=== PATIENT | female | born 1945 | race Caucasian/White ===

== ENCOUNTER 2022-06-06 20:01 | Emergency (ER) | payer MEDICARE, OTHER ==
[~2022-06-06 20:01] MED LIST: ADVAIR 250/28 DISKU1 IH; AROMASIN25 MG PO; ASPIR-TRIN325 MG PO; ASPIRIN E.C. 8181 MG PO; ASPIRIN E.C.325 MG PO; CALCIUM + D 6001 TA1 PO; CALCIUM CITRAT200 MG PO; CALCIUM CITRATE1 TA2 PO; CARDI-OMEGA1000 MG PO; CEPHALEXIN500 M1 PO; CINNAMON CHROMIUM PO; CINNAMON/CHROMIUM; CINNAMON500 MG PO; COREG CR20 M1 PO; COREG CR20 MG PO; COUMADIN 5MG5 MG/TAB PO; COUMADIN 77.5 MG/TAB PO; COUMADIN3 MG PO; COUMADIN6 MG PO; CRESTOR40 MG PO; CRESTOR5 MG PO; ESTROVEN; FORTAMET1000 MG PO; FOSAMAX PLUS D1 TAB PO; FOSAMAX70 MG PO; GLUCOTROL 5M5 MG/TAB PO; GLUTAMINE PO; LISINOPRIL10 MG PO; LOVAZA1 GM PO; LOVENOX30 MG/0.1 SC; MAG-OX 400400 MG PO; MAG-OX 400400 MG/TAB PO; MEGACE20 MG PO; METFORMIN1000 MG PO; NITROSTAT0.4 MG/TAB SL; OMEGA 31000 MG PO; PREMARIN VAG42.5 GM VG; PRILOSEC 20MG20 MG PO; PRILOSEC40 MG PO; PRINIVIL20 MG PO; RITE AID IRON PO; SEPTRA DS 8001 TAB PO; TRICOR 48MG48 MG PO; TRICOR145 MG PO; TRIGLIDE160 MG PO; ULTRAM 50MG TAB50 MG PO; VITAMIN B121000 MC2 SL; VITAMIN B6100 MG PO; VITAMIN C500 MG PO; VITAMIN D; VITAMIN D31000 IU PO; VITAMIN D32000 IU PO; XOPENEX HF0.045 MG/A IH; ZETIA 10MG TAB10 MG PO; ZETIA10 MG PO; [UNRECOGNIZED DRUG - OTHER]
[2022-06-06 22:33] VITALS: BP 129/71; PULSE 86; TEMP 98.4
== END 2022-06-06 23:02 | disposition home or self-care (01) ==
LOC: COL.ER 20:01
DX: U07.1 COVID-19 (principal); R42 Dizziness and giddiness; Z87.891 Personal history of nicotine dependence

== ENCOUNTER 2022-06-09 17:14 | Emergency (ER) | payer MEDICARE, OTHER ==
[~2022-06-09] VITALS: Ht 162.6 cm; Wt 77.3 kg
[2022-06-09 17:23] VITALS: TEMP 98.7
[2022-06-09 17:50] LABS: BASO % 0.3 % (0.0-2.0); EOS # 0.1 K/mm3 (0.0-0.7); EOS % 1.8 % (0.0-4.0); GRAN # 1.5 K/mm3 (1.4-6.5); GRAN % 45.8 % (42.2-75.2); HEMOGLOBIN 12.1 g/dl (12.5-16.0); LYMPH # 1.5 K/mm3 (1.2-3.4); LYMPH % 43.2 % (20.0-51.0); MEAN CELL VOLUME 92 fl (80.0-100.0); MEAN CORPUSCULAR HEMOGLOBIN 31 pg (27-31); MEAN CORPUSCULAR HGB CONC 33 g/dl (33.0-37.0); MEAN PLATELET VOLUME 9.1 fl (7.4-10.4); MONO # 0.3 K/mm3 (0.1-0.6); MONO % 8.9 % (1.7-9.3); PLATELET COUNT 195 K/mm3 (130-400); RED BLOOD COUNT 3.95 M/mm3 (4.10-5.30); REDCELL DISTRIBUTION WIDTH-CV 12.9 % (11.5-14.5)
[2022-06-09 17:53] LABS: HEMATOCRIT 36.2 % (37.0-47.0)
[2022-06-09 18:06] LABS: ALANINE AMINOTRANSFERASE 19 U/L (0-55); ALBUMIN 3.4 gm/dL (3.4-4.8); ALKALINE PHOSPHATASE 35 U/L (40-150); ANION GAP 12 mmol/L (7-16); AST,SGOT 27 U/L (5-34); BILIRUBIN,TOTAL 0.3 mg/dL (0.2-1.2); BLOOD UREA NITROGEN 19 mg/dL (10-20); CALCIUM 10.4 mg/dL (8.4-10.2); CARBON DIOXIDE 23 mmol/L (23-31); CHLORIDE 101 mmol/L (98-107); CREATININE, serum 0.96 mg/dL (0.57-1.11); GLUCOSE 137 mg/dL (70-99); POTASSIUM 3.9 mmol/L (3.5-4.5); SODIUM 136 mmol/L (136-145)
[2022-06-09 18:12] LABS: TROPONIN-I < 0.010 ng/mL (0.00-0.033)
[2022-06-09] MEDS ORDERED: PAXLOVID CO-PA1 EACH PO ×2 (18:17)
[2022-06-09 19:19] VITALS: BP 135/70; PULSE 86
== END 2022-06-09 19:19 | disposition home or self-care (01) ==
LOC: COL.ER 17:14
PROVIDERS: Nurse Practitioner Primary Care
DX: U07.1 COVID-19 (principal); Z87.891 Personal history of nicotine dependence; Z88.6 Allergy status to analgesic agent; Z28.310 Unvaccinated for COVID-19
CPT/HCPCS: J7030

== ENCOUNTER → 2023-12-22 | Outpatient (CLI) | payer MEDICARE, OTHER ==
[~2023-12-22] VITALS: Ht 162.6 cm; Wt 73.0 kg
[2023-12-22] VITALS (11 sets, daily range): BP systolic 56–139; BP diastolic 26–82; PULSE 61–92; TEMP 97.6
[~2023-12-22] MED LIST changes: +ATARAX 25MG25 MG/TAB PO; +ATIVAN 0.50.5 MG/TAB PO; +B-121000 MCG PO; +COREG 6.256.25 MG/TA PO; +CVS SPECTRAVIT1 EA15 PO; +ELIQUIS 5MG PO; +FISH OIL1000 MG PO; +FOLIC ACID0.4 MG PO; +GLUMETZA1000 MG PO; +JANUVIA 100MG100 MG PO; +MASON NATURAL500 MG PO; +OSCAL 500 TAB500 MG PO; +PAXLOVID CO-PA1 EACH PO; +SEROQUEL 2525 MG/TAB PO; +VITAMIN D3400 I1 PO; +ZESTRIL 20MG TA20 MG PO; +ZOLOFT 25MG25 MG PO
--- NOTE | 2023-12-22 09:40 | NUR ---
BP CUFF WAS MOVED FROM THE RIGHT ARM AND PLACED ONTO THE LEFT ARM. BETTER BLOOD PRESSURE WERE THE RESULT
--- NOTE | 2023-12-22 10:15 | NUR ---
PROCEDURE WAS CANCELLED BY DR SANTACRUZ.
== END ==
LOC: COL.RAD 07:28
DX: C34.12 Malignant neoplasm of upper lobe, left bronchus or lung (principal)
CPT/HCPCS: 32106; 32107

== ENCOUNTER 2024-08-18 11:07 | Emergency (ER) | payer MEDICARE, OTHER ==
[~2024-08-18] VITALS: Ht 162.6 cm; Wt 86.4 kg
[2024-08-18 11:12] VITALS: TEMP 97.9
[2024-08-18 11:40] LABS: BASO % 0.3 % (0.0-2.0); EOS # 0.1 K/mm3 (0.0-0.7); EOS % 1.1 % (0.0-4.0); GRAN # 4.5 K/mm3 (1.4-6.5); GRAN % 74.3 % (42.2-75.2); LYMPH % 16.6 % (20.0-51.0); MEAN CELL VOLUME 95 fl (80.0-100.0); MEAN CORPUSCULAR HEMOGLOBIN 32 pg (27-31); MEAN CORPUSCULAR HGB CONC 34 g/dl (33.0-37.0); MONO # 0.5 K/mm3 (0.1-0.6); MONO % 7.5 % (1.7-9.3); PLATELET COUNT 169 K/mm3 (130-400); REDCELL DISTRIBUTION WIDTH-CV 14.6 % (11.5-14.5)
[2024-08-18 11:41] LABS: HEMATOCRIT 32.2 % (37.0-47.0)
[2024-08-18 12:19] LABS: INR 1.6 (0.8-3.0); PROTHROMBIN TIME 17.5 SECONDS (9.7-12.8)
[2024-08-18 12:20] LABS: ALBUMIN 3.6 g/dL (3.4-4.8); BILIRUBIN,TOTAL 0.3 mg/dL (0.2-1.2); CALCIUM 9.8 mg/dL (8.4-10.2); CREATININE, serum 0.82 mg/dL (0.57-1.11); POTASSIUM 3.6 mEq/L (3.5-4.5); TOTAL PROTEIN 6.8 g/dl (6.2-8.1)
[2024-08-18 15:15] VITALS: BP 142/68; PULSE 68
== END 2024-08-18 15:15 | disposition home or self-care (01) ==
LOC: COL.ER 11:07
PROVIDERS: Personal Emergency Response Attendant
DX: S60.812A Abrasion of left wrist, initial encounter (principal); R45.851 Suicidal ideations; X78.8XXA Intentional self-harm by other sharp object, initial encounter